=== PATIENT | female | born 1935 | race Caucasian/White ===

== ENCOUNTER 2019-10-24 09:29 | Inpatient (IN) | payer MEDICARE, OTHER, SELFPAY ==
[2019-10-24] VITALS (12 sets, daily range): BP systolic 116–153; BP diastolic 49–80; PULSE 78–106; RESP 12–23; TEMP 35.7–36.6; O2SAT 94–100; BMI 23.5
--- NOTE | ~2019-10-24 | US_ITS ---
US renal BI 10/25/2019 17:37 Procedure: Realtime transabdominal ultrasound of the kidneys and bladder. Indication: Acute renal failure Comparison: No prior studies for comparison. Findings: There is a right extrarenal pelvis. There is a small echogenic focus in the upper pole of t he right kidney measuring 8 mm, possibly nonobstructing renal stone. Right kidney measures 9.8 cm. Th ere is an 8 mm left renal cyst. There is a 4 mm nonobstructing left renal stone. Bladder is not visua lized due to catheterization. Impression: 1: Probable bilateral nephrolithiasis. 2: 8 mm left renal cyst. Reviewed, dictated and finalized at location A. RAL PASSENGER AGENT Impression: 1: Probable bilateral nephrolithiasis. 2: 8 mm left renal cyst.
--- NOTE | ~2019-10-24 | US_ITS ---
EXAMINATION: US venous doppler LE EXAM DATE: 10/24/2019 11:23 INDICATION: Bilateral leg swelling. TECHNIQUE: Multiple grayscale, color flow and Doppler images of the lower extremity deep venous syste ms bilaterally were obtained and reviewed. There is no prior study for comparison. FINDINGS: RIGHT SIDE Common femoral: -------- Normal. Profunda femoral: ------- Normal. Femoral: Normal. Popliteal: Normal. Posterior tibial: --------- Normal. Peroneal: Normal. Gastrocnemius: Not visualized. Soleus: Not visualized. Greater saphenous: ----- Normal. Lesser saphenous: ------ Not visualized. LEFT SIDE Common femoral: -------- Normal. Profunda femoral: ------- Normal. Femoral: Thrombosed. Popliteal: Thrombosed. Posterior tibial: ---------Thrombosed. Peroneal: Not evaluated. Gastrocnemius: Thrombosed. Soleus: Not visualized. Greater saphenous: ----- Normal. Lesser saphenous: ------ Not visualized. IMPRESSION: 1. Positive for occlusive left lower extremity DVT. 2. No right DVT. Reviewed, dictated and finalized at location B. ARD OPERATOR
--- NOTE | ~2019-10-24 | XR_ITS ---
EXAMINATION: XR chest 1V DATE: 10/24/2019 11:22 INDICATION: Weakness. TECHNIQUE: A single frontal view of the chest was obtained. COMPARISON: None. FINDINGS: The chest demonstrates clear lungs without pneumonia, pleural effusion, or pneumothorax. Th e heart size is normal. Surgical clips in the right upper quadrant are likely from cholecystectomy. IMPRESSION: 1. No acute cardiopulmonary disease. Reviewed, dictated and finalized at location A. WHEELER
--- NOTE | ~2019-10-24 | CT_ITS ---
EXAMINATION: CT brain wo con EXAM DATE: 10/24/2019 10:57 INDICATION: Weakness. TECHNIQUE: Spiral CT of the head was performed without contrast. Axial, coronal and sagittal images were reviewed. The dose-length product (DLP) for this examination was 605.33 mGy-cm. The exposure w as tailored according to patient size, and iterative reconstruction (ASIR) was used as additional dos e reduction technique. Comparison is made to prior examination from 10/05/2017. FINDINGS: There is no acute intraparenchymal hemorrhage. No evidence of intraparenchymal brain mass lesion. No evidence of acute infarction. Please note that initial head CT has limited sensitivity f or small or acute infarctions. There is moderate periventricular and subcortical hypodensity, nonspec ific but probably related to small vessel ischemic disease. There is ventricular prominence out of proportion to sulci which is suspected most likely central atrophy rather than hydrocephalus. Normal pressure hydrocephalus cannot be excluded (clinical triad ataxia/gait disturbance, dementia, urinary incontinence). There is intracranial carotid arteriosclerosis. There are no extra-axial collectio ns. There is no mass effect or midline shift. The orbits are unremarkable. Soft tissue is unremark able. The visualized sinuses and mastoid air cells are well aerated. Difficult to appreciate any s ignificant interval change compared to prior study. IMPRESSION: 1. No acute intracranial findings. 2. Dilated ventricles most likely central atrophy. 3. Moderate microangiopathy. Reviewed, dictated and finalized at location B. LINE OPERATOR
--- NOTE | 2019-10-24 09:48 | ECG_ITS ---
Measurements Intervals [place] Rate: 96 P: 59 AR: 129 QRS: -11 QRSD: 91 T: 32 QT: 341 QTc: 433 Interpretive Statements SINUS RHYTHM ATRIAL PREMATURE COMPLEXES BORDERLINE T WAVE ABNORMALITY- INFERIOR LEADS BASELINE ARTIFACT- I, II, AVR, AVL, AVF, V5-V6 BORDERLINE ECG Electronically Signed On 10-24-2019 16:06:15 [employer] by Marcio Tripp D.O.
--- NOTE | 2019-10-24 10:09 | ED.WEAKNESS ---
HPI - Weakness General Chief complaint: Weakness Stated complaint: weakness Time Seen by Provider: 10/24/19 09:53 Source: patient, family (pt's ) and RN notes reviewed Mode of arrival: EMS Limitations: dementia History of Present Illness HPI Narrative: Pt is a 84 y/o female with a Hx of dementia, who presents to the ED with c/o increasing generalized weakness starting over 1 month ago. According to the pt's family, she started becoming more weak than normal around 09/17/19. Pt's family notes that within the past 2 weeks, she has hardly eaten anything and has become so weak that they are unable to help her get out of her chair. Her states that she has been drinking a significant amount of water. Pt's also reports the pt having fatigue and bilateral pedal edema. She currently denies any pain. Her notes that she has been taking her normal medications as prescribed. Pt's family states that she hasn't experienced any recent life stressors that could have caused her symptoms. HPI limited due to pt's dementia. HPI given by pt's family. MD Complaint: generalized weakness Onset (ago): month(s) (1) Duration: progressively worsening Location: generalized Associated symptoms: other (fatigue; bilateral pedal edema; decreased food intake) Related Data Home Medications Medication Instructions Recorded Confirmed atorvastatin 10 mg PO HS 10/24/19 10/24/19 donepezil 10 mg PO QPM 10/24/19 10/24/19 fesoterodine [Toviaz] 4 mg PO DAILY 10/24/19 10/24/19 glimepiride 2 mg PO DAILY 10/24/19 10/24/19 metformin 1,000 mg PO BID 10/24/19 10/24/19 Allergies Allergy/AdvReac Type Severity Reaction Status Date / Time codeine Allergy Unknown Nausea Verified 09/28/17 21:20 Review of Systems Review of Systems: Narrative: ROS limited due to pt's dementia. ROS given by pt's family. Constitutional: Constitutional: Reports fatigue, Reports weakness (generalized weakness) and Reports other (decreased food intake) Cardiovascular: Cardiovascular: Reports pedal edema (bilateral pedal edema) PMF Past Medical History Medical History Cancer of left breast Diabetes HLD (hyperlipidemia) HTN (hypertension) Surgical History Surgical History Hx of cholecystectomy Hx of left mastectomy Hx of spinal surgery Family History Family History (Updated 10/24/19 @ 16:36 by Taylor Leonard, RN) Mother Patient's mother is , Onset Age: 93 Chronic obstructive pulmonary disease Father Family history of lung cancer, Onset Age: 76 Chronic obstructive pulmonary disease Social History Social History Smoking status: Never smoker Second hand tobacco smoke exposure: Yes Alcohol intake: never Substance use: never Substance use type: does not use Gender identity (if verbalized by the patient): Female Spiritual care concerns: No Agree to blood products: Yes Comments PCP is Dr. Fagan. Exam Const: General: alert and ill appearing Orientation/consciousness: patient oriented x3 HENMT: Head: normocephalic and atraumatic Ears: hearing grossly normal bilaterally Face and sinus: normal facial exam, face symmetric and dry mucous membranes Mouth: Yes lip normal Throat: posterior oropharynx normal Eyes: Conjunctivae: conjunctivae normal Pupils: Equal, round and reactive pupils present Neck: Neck: no lymphadenopathy Chest: Chest palpation & inspection: normal inspection of the chest Resp: Effort & Inspection: normal respiratory effort Auscultation: clear to auscultation bilaterally and diminished lung sounds Cardio: Rhythm: regular rhythm Heart sounds: no murmurs GI: Inspection: non-distended GI Palp: Yes Soft to palpation, Yes Tenderness to palpation present (GI) (patient moans everywhere you touch her), No Guarding due to palpatio
[2019-10-24 10:38] LABS: Alveolar/Arterial O2 Gradient 20.9 mmHg; Base Excess ABG -6.1 mEq/l (+/-2.0); Carboxyhemoglobin 0.2 % THb (0-2.0); Fractional Inspired Oxygen 21 %; HCO3 ABG 14.5 mEq/l (22.0-26.0); Methemoglobin ABG 0.2 %THb (0-1.5); Oxygen Content ABG 18.5 %vol (16.0-22.0); Oxygen Saturation ABG 98.4 % (95.0-100.0); Oxyhemoglobin 97.3 % THb (90.0-100.0); PO2 ABG 106.3 mmHg (80.0-100.0); PO2 FiO2 Ratio Arterial Blood 5.06 %; Reduced Hemoglobin 2.3 %THb (0-5.0); Total Hemoglobin 13.4 g/dL (12.0-18.0); pH ABG 7.505 (7.350-7.450)
[2019-10-24 10:40] LABS: Basophils Percent Auto 0.2 % (0.2-1.2); Hematocrit 42.6 % (37.0-47.0); Hemoglobin 13.5 g/dL (12.0-15.0); Immature Granulocyte Absolute 0.16 K/mm3 (0.00-0.031); Lymphocytes Absolute Auto 1.64 K/mm3 (0.9-3.2); Lymphocytes Percent Auto 10.3 % (18.3-44.2); Mean Corpuscular HGB Conc 31.7 g/dl (32-36); Mean Corpuscular Hemoglobin 26.3 pg (26-34); Mean Platelet Volume 10.5 fl (7.4-10.4); Monocytes Absolute Auto 0.7 K/mm3 (0.1-0.6); Monocytes Percent Auto 4.3 % (2.6-8.5); Neutrophils Absolute Auto 13.5 K/mm3 (1.3-6.7); Neutrophils Percent Auto 84.2 % (45.5-73.1); Platelet Count Result 284 k/mm3 (150-375); Red Blood Count 5.13 M/mm3 (4.2-5.4)
[2019-10-24 10:43] LABS: Device ROOM AIR; PCO2 ABG 18.8 mmHg (35.0-45.0); Site Drawn RIGHT BRACHIAL
[2019-10-24 10:50] LABS: Prothrombin Time 12.8 Seconds (11.1-14.7)
[2019-10-24 10:51] LABS: Partial Thromboplastin Time 34.9 SECONDS (22.3-36.8)
[2019-10-24 10:56] LABS: Alanine Aminotransferase 13 U/L (4-35); Albumin Level 4.1 g/dL (3.5-5.1); Alkaline Phosphatase 125 U/L (38-126); Aspartate Amino Transferase 15 U/L (14-36); Bilirubin,Total 0.4 mg/dL (0.2-1.3); Blood Urea Nitrogen 92 mg/dL (7-17); Calcium 9.9 mg/dL (8.4-10.2); Carbon Dioxide 15 mmol/L (22-30); Chloride 95 mmol/L (98-107); Estimated CRCL calculation 5 ml/min; Estimated Glomerular Filt Rate 6; Glucose 141 mg/dL (65-105); Magnesium 1.4 mg/dL (1.6-2.3); Potassium 5.1 mmol/L (3.4-5.0); Sodium 134 mmol/L (137-145)
--- NOTE | 2019-10-24 10:56 | PCCCNOTE ---
spoke with daughter c/o possible NH placement; given list of available NH in the area. Discussed different payment options but too early to determine best option.
[2019-10-24 10:59] LABS: Ammonia < 9 umol/L (9-30)
[2019-10-24 11:05] LABS: NT Pro B Type Natriuretic Pept 2940 PG/ML (5-100)
[2019-10-24] MEDS: SODIUM CHLORIDE 0.9% IV 1,000 ML 999 ML IV CONT (11:42)
[2019-10-24 11:57] LABS: Add Urine Microscopic? YES; Appearance Urine Cloudy (Clear); Bacteria Urine Trace /hpf; Bilirubin Urine Negative (Negative); Blood Urine 2+ (Negative); Color Urine Yellow (Yellow); Glucose Urine UA 1+ mg/dL (Negative); Hyaline Casts Urine 50+ /lpf; Ketones Urine Negative (Negative); Leukocyte Esterase Ur 1+ LEU/UL (Negative); Mucus Urine Heavy /lpf; Nitrate Urine Negative (Negative); Protein Urine 2+ mg/dL (Negative); RBC Urine 21-50 /hpf (0-2); Specific Grav Ur 1.018 (1.001-1.035); Squamous Epithelial Cell Urine Moderate /hpf (Few); Urobilinogen Urine Negative mg/dL (<2.0); WBC Clumps Urine Present /HPF; WBC Urine 21-30 /hpf
--- NOTE | 2019-10-24 14:39 | ADMGEN ---
This patient, Hannah Lima, was admitted to IMU Room 214-01. Patient/family oriented to hospital policies and general routines including ID bracelet, bed and alarms, visiting hours, pain management, procedures, bathroom and other care routines, personal items, smoking policy, room service/diet, and visiting hours. Valuables list has been completed. Information on how to activate the Rapid Response Team has been discussed. Patient/Family are encouraged to report perceived risks to care and to ask questions if they do not understand what they are told or what they should do.
[2019-10-24] MEDS: HEPARIN SOD/D5W 100 UNITS/ML 25,000 UNITS/250 ML BAG 10 UNITS IV CONT (17:03)
[2019-10-24] MEDS: LACTATED RINGERS 1,000 ML 125 ML IV CONT (17:03)
[2019-10-24] MEDS: HEPARIN SODIUM 5,000 UNITS/ML VIAL 4500 UNITS IV PUSH (17:04)
--- NOTE | 2019-10-24 20:18 | PM.IMHP ---
H&P: HPI History of Present Illness Chief complaint: Generalized Weakness++ Narrative: This is a demented 84 year old female who is known to live at home with her and who presented to the hospital today secondary to increased generalized weakness over the past 1 month. The patient's family reports that she has had increased ambulatory dysfunction over the past few weeks and has needed help just to ambulate. Over the past 3-4 days she simply hasn't even got out of bed and stopped eating and drinking according to her and has had increased lower extremity swelling++ The patient herself is only oriented to herself and cannot contribute to her history. Her also reports that the patient has been messing herself and laying in it. The patient denies any specific pain tonight. The pateint was evaluated in the ER tonight and found to be in acute renal failure with a Cr of 7.00 and a BUN of 92. The patient also had a low magnesium of 1.4 and a WBC of 16,000. Urinalysis demonstrated a grossly abnormal urine w/ 21-30 wbc, +[address] Devine, Nephrology has been consulted by the ER provider and has already evaluated the patient. The patient was also found to have a LLE DVT in the ER tonight. Family denies any recent falls. Review of Systems Review of Systems: ROS unobtainable: unobtainable due to mental status PMFSH Past Medical History Medical History Cancer of left breast Dementia Diabetes HLD (hyperlipidemia) HTN (hypertension) Surgical History Surgical History Hx of cholecystectomy Hx of left mastectomy Hx of spinal surgery Family History Family History Mother Patient's mother is , Onset Age: 93 Chronic obstructive pulmonary disease Father Family history of lung cancer, Onset Age: 76 Chronic obstructive pulmonary disease Social History Social History Smoking status: Never smoker Second hand tobacco smoke exposure: Yes Alcohol intake: never Substance use: never Substance use type: does not use Gender identity (if verbalized by the patient): Female Spiritual care concerns: No Agree to blood products: Yes Meds Home Medications and Allergies Home Medications Medication Instructions Recorded Confirmed Type lisinopril 10 mg tablet 10 mg PO DAILY #90 tablet 10/21/19 10/24/19 Rx atorvastatin 10 mg PO HS 10/24/19 10/24/19 History donepezil 10 mg PO QPM 10/24/19 10/24/19 History fesoterodine [Toviaz] 4 mg PO DAILY 10/24/19 10/24/19 History glimepiride 2 mg PO DAILY 10/24/19 10/24/19 History metformin 1,000 mg PO BID 10/24/19 10/24/19 History Allergies Allergy/AdvReac Type Severity Reaction Status Date / Time codeine Allergy Unknown Nausea Verified 09/28/17 21:20 Vital Signs Vital Signs - 24 hr 10/24/19 09:30 10/24/19 09:46 10/24/19 10:15 Temperature 36.6 C Pulse Rate 96 99 106 H Respiratory Rate 20 16 23 H Blood Pressure 142/80 H 147/74 H 126/78 Pulse Oximetry 100 100 100 10/24/19 11:30 10/24/19 12:15 10/24/19 14:35 Temperature 35.7 C L Pulse Rate 93 96 98 Respiratory Rate 22 H 18 12 Blood Pressure 153/77 H 148/71 H Pulse Oximetry 100 95 10/24/19 16:00 10/24/19 18:00 10/24/19 19:55 Temperature 35.7 C L 36.1 C L Pulse Rate 99 93 89 Respiratory Rate 18 22 H Blood Pressure 134/65 129/49 L Pulse Oximetry 100 97 Exam Const: General: awake and acute distress moderate and respiratory (tachypneic++) Nutritional Appearance: overweight Orientation/consciousness: oriented to person HENMT: Head: normal to inspection General nose exam: Normal external nose present Face and sinus: normal facial exam Mouth: Yes Normal oral and palatal mucosa present and Yes oropharynx normal Eyes: Pupils: Equal, round and
[2019-10-24 20:47] LABS: Glucose Point of Care 45 (65-105)
[2019-10-24] MEDS: GLUCOSE ORAL GEL 15 GM OF GLUCSE IN 37.5 GM TUBE (20:48)
[2019-10-24 21:08] LABS: Lactic Acid Reflex 1.5 mmol/L (0.7-2.1)
[2019-10-24 21:09] LABS: Creatine Kinase 78 U/L (30-135)
[2019-10-24 21:17] LABS: Blood Urea Nitrogen 95 mg/dL (7-17); Calcium 8.7 mg/dL (8.4-10.2); Carbon Dioxide 15 mmol/L (22-30); Chloride 98 mmol/L (98-107); Estimated CRCL calculation 5 ml/min; Estimated Glomerular Filt Rate 6; Glucose 48 mg/dL (65-105); Magnesium 1.4 mg/dL (1.6-2.3); Potassium 4.2 mmol/L (3.4-5.0); Sodium 131 mmol/L (137-145)
[2019-10-24] MEDS: SODIUM CHLORIDE 0.9% IV 1,000 ML 125 ML IV CONT (21:22)
[2019-10-24] MEDS: DEXTROSE 50% 25 GM/50 ML SYRINGE IV PUSH (21:22)
[2019-10-24 21:23] LABS: Glucose Point of Care 48 (65-105)
[2019-10-24 21:29] LABS: Alveolar/Arterial O2 Gradient 8.1 mmHg; Base Excess ABG -6.4 mEq/l (+/-2.0); Fractional Inspired Oxygen 21 %; HCO3 ABG 16.9 mEq/l (22.0-26.0); Oxygen Content ABG 16.3 %vol (16.0-22.0); Oxygen Saturation ABG 98.1 % (95.0-100.0); Oxyhemoglobin 96.5 % THb (90.0-100.0); PCO2 ABG 27.3 mmHg (35.0-45.0); PO2 ABG 108.9 mmHg (80.0-100.0); PO2 FiO2 Ratio Arterial Blood 5.19 %; Total Hemoglobin 11.9 g/dL (12.0-18.0); pH ABG 7.409 (7.350-7.450)
[2019-10-24 21:31] LABS: Device ROOM AIR; Modified Allen's Test Pass; Site Drawn RIGHT RADIAL
[2019-10-24] MEDS: ATORVASTATIN 10 MG TABLET PO (21:35)
[2019-10-24] MEDS: DONEPEZIL HCL 10 MG TABLET PO (21:35)
[2019-10-24] MEDS: MAGNESIUM SULF 1 GM/D5W 100 ML 1 GM/100 ML BAG IVPB (22:55)
[2019-10-24 23:09] LABS: Glucose Point of Care 150 (65-105)
[2019-10-24 23:09] LABS: Glucose Point of Care 144 (65-105)
[2019-10-25] VITALS (17 sets, daily range): BP systolic 115–135; BP diastolic 48–59; PULSE 73–100; RESP 12–20; TEMP 36–36.7; O2SAT 98–100
[2019-10-25 01:27] LABS: Partial Thromboplastin Time 84.1 SECONDS (22.3-36.8)
[2019-10-25 06:15] LABS: Creatinine Urine 62.9 mg/dL; Total Protein Urine Random 125 mg/dL
[2019-10-25 06:20] LABS: Sodium Urine Random 64 meq/L
[2019-10-25] MEDS: DEXTROSE 50% 25 GM/50 ML SYRINGE IV PUSH (06:32)
[2019-10-25] MEDS: DEXTROSE 5%/0.9% SOD CHL 1,000 ML 125 ML IV CONT ×2 (06:43→15:26)
[2019-10-25 06:57] LABS: Glucose Point of Care 47 (65-105)
[2019-10-25 06:57] LABS: Glucose Point of Care 100 (65-105)
[2019-10-25 06:57] LABS: Glucose Point of Care 49 (65-105)
[2019-10-25 07:49] LABS: Basophils Percent Auto 0.1 % (0.2-1.2); Hematocrit 33.4 % (37.0-47.0); Hemoglobin 10.7 g/dL (12.0-15.0); Immature Granulocyte Absolute 0.15 K/mm3 (0.00-0.031); Immature Granulocyte Percent A 1.1 % (0-0.5); Lymphocytes Absolute Auto 1.08 K/mm3 (0.9-3.2); Lymphocytes Percent Auto 7.7 % (18.3-44.2); Mean Corpuscular Hemoglobin 26.6 pg (26-34); Mean Corpuscular Volume 83.1 fl (80-100); Mean Platelet Volume 10.5 fl (7.4-10.4); Monocytes Absolute Auto 0.8 K/mm3 (0.1-0.6); Neutrophils Absolute Auto 11.9 K/mm3 (1.3-6.7); Neutrophils Percent Auto 85.1 % (45.5-73.1); Platelet Count Result 222 k/mm3 (150-375); Red Blood Count 4.02 M/mm3 (4.2-5.4); Red Cell Distribution Width 14.3 % (11.5-14.5)
[2019-10-25 08:03] LABS: Alanine Aminotransferase 11 U/L (4-35); Albumin Level 2.7 g/dL (3.5-5.1); Alkaline Phosphatase 78 U/L (38-126); Aspartate Amino Transferase 13 U/L (14-36); Bilirubin,Total 0.2 mg/dL (0.2-1.3); Blood Urea Nitrogen 94 mg/dL (7-17); Calcium 8.2 mg/dL (8.4-10.2); Carbon Dioxide 16 mmol/L (22-30); Chloride 98 mmol/L (98-107); Estimated CRCL calculation 5 ml/min; Estimated Glomerular Filt Rate 6; Glucose 139 mg/dL (65-105); Sodium 132 mmol/L (137-145)
[2019-10-25] MEDS: HEPARIN SODIUM 5,000 UNITS/ML VIAL 2000 UNITS IV PUSH (08:23)
[2019-10-25 08:34] LABS: Glucose Point of Care 107 (65-105)
[2019-10-25 08:47] LABS: Albumin Level 2.5 g/dL (3.5-5.1); Blood Urea Nitrogen 93 mg/dL (7-17); Calcium 8.3 mg/dL (8.4-10.2); Carbon Dioxide 17 mmol/L (22-30); Chloride 99 mmol/L (98-107); Estimated CRCL calculation 5 ml/min; Estimated Glomerular Filt Rate 6; Glucose 122 mg/dL (65-105); Phosphorus 4.3 mg/dL (2.5-4.5); Potassium 4.1 mmol/L (3.4-5.0); Sodium 132 mmol/L (137-145)
--- NOTE | 2019-10-25 11:44 | PM.CNNEP ---
Assessment and Plan Assessment and plan (1) Acute renal failure (ARF): Qualifiers: Acute renal failure type: unspecified Qualified Code(s): N17.9 - Acute kidney failure, unspecified Code(s): N17.9 - Acute kidney failure, unspecified Status: Acute Assessment and Plan: The patient has acute kidney injury. Etiology may be dehydration. She has not been eating or drinking very well for the last 2 weeks. She may also have an element of ATN because of the prolonged period of dehydration and because she has a bladder infection and infection can cause ATN as well especially when she is already dehydrated. Other possibilities include obstruction, glomerulonephritis, and interstitial nephritis but I a do not see any clinical suggestions of these. Her urine electrolytes are non pre renal suggesting that ATN may also be involved. Renal ultrasound will be ordered. She is not on any nephrotoxic medications. I agree with giving her IV fluids. We will keep an eye on the bicarb as we hydrate. (2) Metabolic acidosis with increased anion gap and reduced excretion of inorganic acids: Code(s): E87.2 - Acidosis Status: Acute Assessment and Plan: Patient has metabolic acidosis with a mildly elevated anion gap. Her lactic acid level is negative. Will check a BHOb. The patient probably has an acidosis because of her renal insufficiency. (3) HTN (hypertension): Qualifiers: Hypertension type: unspecified Qualified Code(s): I10 - Essential (primary) hypertension Code(s): I10 - Essential (primary) hypertension Status: Chronic (4) Diabetes: Qualifiers: Diabetes mellitus type: type 2 Diabetes mellitus usp insulin use: without usp use Diabetes mellitus complication status: without complication Qualified Code(s): E11.9 - Type 2 diabetes mellitus without complications Code(s): E11.9 - Type 2 diabetes mellitus without complications Status: Chronic Assessment and Plan: Blood pressure is well controlled. (5) Complicated UTI (urinary tract infection): Code(s): N39.0 - Urinary tract infection, site not specified Status: Acute Assessment and Plan: Urine culture is pending. She is on antibiotics. History of Present Illness Reason for Consult Consult date: 10/25/19 Chief Complaint Chief complaint: Generalized Weakness++ History of Present Illness Narrative: Hannah is a very pleasant 84-year-old lady who has multiple medical problems problems including diabetes, senile dementia, hypertension, hyperlipidemia, left-sided breast cancer 10 years ago, anemia. Two sons are in the room and helped with the history. The patient lives with her at home. Over the last 2 weeks the patient has been gradually weaker and she has not been eating or drinking very much. She has had no belly pain. She does not remember why she stopped eating. She just has no appetite. Her called the sons yesterday because he could not get her up anymore and they went over there and found her to be very weak so called an ambulance and took her to the emergency room. In the emergency room they assessed her. They felt her to be dehydrated and gave her some fluid and admitted her. She has never had kidney disease before. She does not have any bloody urine, foamy urine, painful urination, kidney stones, or bladder infections. She has not had any fevers or chills. She says that she does not take any nonsteroidal anti-inflammatory agents. She is on metformin. Her lactic acid was normal. She does not smoke or drink. Review of Systems Constitutional: Constitutional: Reports no additional constitutional complaints Eyes: Eyes: Reports no additional eye complaints ENT: Reports system reviewed and no additional complaints, except as documented Cardiovascular: Cardiovascular: Reports no additional cardiovascular complaints Respira
[2019-10-25 11:56] LABS: Glucose Point of Care 117 (65-105)
[2019-10-25 15:46] LABS: Partial Thromboplastin Time > 200.0 SECONDS (22.3-36.8)
--- NOTE | 2019-10-25 16:59 | PM.IMPN ---
Progress Note: A&P Assessment and Plan (1) Complicated UTI (urinary tract infection): Code(s): N39.0 - Urinary tract infection, site not specified Status: Acute Assessment and Plan: The patient has been admitted, Continue Zosyn IV. Urine culture pending growing multiple organisms with sepsis will continue antibiotic. Sanchez catheter was placed. Monitor urine output. (2) Sepsis: Qualifiers: Sepsis type: sepsis due to unspecified organism Sepsis acute organ dysfunction status: with acute organ dysfunction Severe sepsis acute organ dysfunction type: acute renal failure Acute renal failure type: unspecified Severe sepsis shock status: without septic shock Qualified Code(s): A41.9 - Sepsis, unspecified organism; R65.20 - Severe sepsis without septic shock; N17.9 - Acute kidney failure, unspecified Code(s): A41.9 - Sepsis, unspecified organism Status: Acute Assessment and Plan: Source of sepsis appears to be urinary.. blood,cultures pending. Continue IV antibiotic therapy. Continue IV hydration. (3) Acute renal failure (ARF): Qualifiers: Acute renal failure type: unspecified Qualified Code(s): N17.9 - Acute kidney failure, unspecified Code(s): N17.9 - Acute kidney failure, unspecified Status: Acute Assessment and Plan: Likely secondary to dehydration and poor PO intake of fluids. Continue IV fluid challenge. Check CK normal. Check urine electrolytes. Renal ultrasound pending. Nephrology has been consulted. Continue nephrology recommendations. (4) Dehydration: Code(s): E86.0 - Dehydration Status: Acute Assessment and Plan: Continue IV hydration. Monitor vital signs and urine output. (5) Failure to thrive: Qualifiers: Failure to thrive age range: in adult Qualified Code(s): R62.7 - Adult failure to thrive Status: Acute Assessment and Plan: Likely multifactorial. The patient will likely need placement in a SNF when she is medically stable. (6) Decubitus ulcer, stage 1 with infection: Code(s): L89.91 - Pressure ulcer of unspecified site, stage 1; L08.9 - Local infection of the skin and subcutaneous tissue, unspecified Status: Acute Assessment and Plan: Wound care consult. Offload pressure. (7) Dementia: Qualifiers: Dementia type: unspecified type Dementia behavioral disturbance: without behavioral disturbance Qualified Code(s): F03.90 - Unspecified dementia without behavioral disturbance Code(s): F03.90 - Unspecified dementia without behavioral disturbance Status: Chronic Assessment and Plan: Continue home donepezil when appropriate. (8) Metabolic acidosis with increased anion gap and reduced excretion of inorganic acids: Code(s): E87.2 - Acidosis Status: Acute Assessment and Plan: Appears to be secondary to acute renal failure. Monitor acid-base status. (9) Hyperkalemia: Code(s): E87.5 - Hyperkalemia Status: Acute Assessment and Plan: Secondary to acute renal failure. Continue telemetry. Check BMP now. We will consider kayexalate, dextrose, insulin and sodium bicarbonate if necessary overnight. K 4.1 resolved (10) Diabetes: Qualifiers: Diabetes mellitus type: type 2 Diabetes mellitus mcfp insulin use: without terminologist use Diabetes mellitus complication status: without complication Qualified Code(s): E11.9 - Type 2 diabetes mellitus without complications Code(s): E11.9 - Type 2 diabetes mellitus without complications Status: Chronic Assessment and Plan: accuchecks, SSI coverage, hypoglycemic protocol. (11) HTN (hypertension): Qualifiers: Hypertension type: unspecified Qualified Code(s): I10 - Essential (primary) hypertension Code(s): I10 - Essential (primary) hypertension Status: Chronic Assessment and Plan: stable. monitor blood pressur
[2019-10-25] MEDS: DONEPEZIL HCL 10 MG TABLET PO (18:23)
[2019-10-25] MEDS: GLUCOSE ORAL GEL 15 GM OF GLUCSE IN 37.5 GM TUBE PO ×2 (18:31→22:04)
[2019-10-25 18:39] LABS: Glucose Point of Care 64 (65-105)
[2019-10-25 19:05] LABS: Glucose Point of Care 63 (65-105)
[2019-10-25 19:31] LABS: Glucose Point of Care 72 (65-105)
[2019-10-25] MEDS: HEPARIN SOD/D5W 100 UNITS/ML 25,000 UNITS/250 ML BAG 11 UNITS IV CONT (20:42)
[2019-10-25] MEDS: ATORVASTATIN 10 MG TABLET PO (20:46)
[2019-10-25 21:49] LABS: Glucose Point of Care 55 (65-105)
[2019-10-25 22:31] LABS: Glucose Point of Care 73 (65-105)
[2019-10-25] MEDS: DEXTROSE 10% 1,000 ML 80 ML IV CONT (23:39)
[2019-10-26] VITALS (10 sets, daily range): BP systolic 103–130; BP diastolic 55–77; PULSE 81–97; RESP 16–24; TEMP 36.2–36.4; O2SAT 97–100; BMI 10.0
[2019-10-26 00:36] LABS: Glucose Point of Care 94 (65-105)
[2019-10-26 01:03] LABS: Partial Thromboplastin Time 184.7 SECONDS (22.3-36.8)
[2019-10-26 03:04] LABS: Glucose Point of Care 58 (65-105)
[2019-10-26 03:32] LABS: Glucose Point of Care 77 (65-105)
[2019-10-26 05:20] LABS: Glucose Point of Care 114 (65-105)
[2019-10-26 07:31] LABS: Basophils Percent Auto 0.2 % (0.2-1.2); Eosinophils Absolute Auto 0.1 K/mm3 (0-0.3); Eosinophils Percent Auto 0.7 % (0-4.4); Hematocrit 32.3 % (37.0-47.0); Hemoglobin 10.2 g/dL (12.0-15.0); Immature Granulocyte Absolute 0.15 K/mm3 (0.00-0.031); Immature Granulocyte Percent A 1.2 % (0-0.5); Lymphocytes Percent Auto 11.1 % (18.3-44.2); Mean Corpuscular HGB Conc 31.6 g/dl (32-36); Mean Corpuscular Hemoglobin 26.6 pg (26-34); Mean Corpuscular Volume 84.3 fl (80-100); Mean Platelet Volume 10.5 fl (7.4-10.4); Monocytes Absolute Auto 0.9 K/mm3 (0.1-0.6); Monocytes Percent Auto 6.9 % (2.6-8.5); Neutrophils Absolute Auto 10.1 K/mm3 (1.3-6.7); Neutrophils Percent Auto 79.9 % (45.5-73.1); Platelet Count Result 206 k/mm3 (150-375); Red Blood Count 3.83 M/mm3 (4.2-5.4); Red Cell Distribution Width 14.6 % (11.5-14.5); White Blood Count 12.6 K/mm3 (4.5-10.0)
[2019-10-26 07:46] LABS: Albumin Level 2.7 g/dL (3.5-5.1); Blood Urea Nitrogen 78 mg/dL (7-17); Calcium 7.9 mg/dL (8.4-10.2); Carbon Dioxide 17 mmol/L (22-30); Chloride 95 mmol/L (98-107); Estimated CRCL calculation 6 ml/min; Estimated Glomerular Filt Rate 8; Glucose 190 mg/dL (65-105); Phosphorus 3.2 mg/dL (2.5-4.5); Potassium 3.4 mmol/L (3.4-5.0); Sodium 128 mmol/L (137-145)
[2019-10-26 08:04] LABS: Partial Thromboplastin Time 171.9 SECONDS (22.3-36.8)
[2019-10-26] MEDS: DEXTROSE 10% 1,000 ML 150 ML IV CONT (08:11)
[2019-10-26] MEDS: DEXTROSE 5%/0.9% SOD CHL 1,000 ML 125 ML IV CONT ×2 (09:33→17:51)
[2019-10-26 09:37] LABS: Glucose Point of Care 138 (65-105)
[2019-10-26 11:26] LABS: IFOB Positive Control Positive; Immunochemical Fecal Occult Bl Negative (N)
--- NOTE | 2019-10-26 13:55 | PM.PNNEP ---
Progress Note: A&P Assessment and Plan (1) Acute renal failure (ARF): Qualifiers: Acute renal failure type: unspecified Qualified Code(s): N17.9 - Acute kidney failure, unspecified Code(s): N17.9 - Acute kidney failure, unspecified Status: Acute Assessment and Plan: The patient has acute kidney injury. No hydro. She has 1 cyst and possible bilateral kidney stones. Urine electrolytes are non pre renal. UA does show blood and pus in the urine. Culture shows multiple organisms. Etiology may be dehydration. She has not been eating or drinking very well for the last 2 weeks. Patient also has some diarrhea. She may also have an element of ATN because of the prolonged period of dehydration. Her creatinine is a little bit better. Will continue IV fluids. CO2 is stable. (2) Metabolic acidosis with increased anion gap and reduced excretion of inorganic acids: Code(s): E87.2 - Acidosis Status: Acute Assessment and Plan: Patient has metabolic acidosis with a mildly elevated anion gap. Her lactic acid level is negative as well as BHOb. The patient probably has an acidosis because of her renal insufficiency. (3) HTN (hypertension): Qualifiers: Hypertension type: unspecified Qualified Code(s): I10 - Essential (primary) hypertension Code(s): I10 - Essential (primary) hypertension Status: Chronic (4) Diabetes: Qualifiers: Diabetes mellitus type: type 2 Diabetes mellitus halfway insulin use: without halfway use Diabetes mellitus complication status: without complication Qualified Code(s): E11.9 - Type 2 diabetes mellitus without complications Code(s): E11.9 - Type 2 diabetes mellitus without complications Status: Chronic Assessment and Plan: On Accu-Cheks and sliding-scale insulin (5) Complicated UTI (urinary tract infection): Code(s): N39.0 - Urinary tract infection, site not specified Status: Acute Assessment and Plan: Urine culture is negative She is on antibiotics. Subjective Date/time seen: 10/26/19 13:55 Interval history: The patient was sleeping when I entered the room. and daughter are in the room as well. Patient wakens easily. No chest pain or shortness of breath. She is getting IV fluids. Review of Systems Cardiovascular: Cardiovascular: Reports no additional cardiovascular complaints Respiratory: Respiratory: Reports no additional respiratory complaints Gastrointestinal: Gastrointestinal: Reports no additional gastrointestinal complaints Genitourinary: Genitourinary: Reports no additional female genitourinary complaints Exam Narrative: Exam Narrative: Well developed well-nourished in no acute distress Lungs clear Heart regular without rub Abdomen bowel sounds positive soft nontender Extremities no edema Skin no rash Objective Data Vital Signs Vital Signs: Vital Signs - 24 hr 10/25/19 14:05 10/25/19 16:00 10/25/19 18:00 Temperature 36.6 C Pulse Rate 80 88 88 Respiratory Rate 16 Blood Pressure 125/54 L Pulse Oximetry 98 10/25/19 19:47 10/25/19 20:00 10/25/19 22:00 Temperature 36.2 C L Pulse Rate 87 84 84 Respiratory Rate 20 Blood Pressure 135/57 L Pulse Oximetry 98 10/25/19 23:57 10/26/19 00:00 10/26/19 02:00 Temperature 36.7 C Pulse Rate 88 90 82 Respiratory Rate 18 Blood Pressure 131/59 L Pulse Oximetry 98 10/26/19 03:48 10/26/19 04:00 10/26/19 05:53 Temperature 36.3 C L Pulse Rate 88 81 90 Respiratory Rate 22 H Blood Pressure 130/77 Pulse Oximetry 97 10/26/19 08:00 10/26/19 10:00 10/26/19 12:00 Temperature 36.4 C L Pulse Rate 89 88 92 Respiratory Rate 24 H Blood Pressure 103/60 Pulse Oximetry 100 Intake/Output Intake/Output: Intake & Output 10/23/19 10/24/19 10/25/19 10/26/19 23:59 23:59 23:59 23:59 Intake Total 1729.3 2292.7 1350 Output Total 0 6
[2019-10-26 14:12] LABS: Glucose Point of Care 135 (65-105)
--- NOTE | 2019-10-26 15:11 | PM.IMPN ---
Progress Note: A&P Assessment and Plan (1) Complicated UTI (urinary tract infection): Code(s): N39.0 - Urinary tract infection, site not specified Status: Acute Assessment and Plan: Continue Zosyn IV. Urine culture growing multiple organisms but with sepsis will continue antibiotic. Sanchez catheter was placed. Monitor urine output. (2) Sepsis: Qualifiers: Sepsis type: sepsis due to unspecified organism Sepsis acute organ dysfunction status: with acute organ dysfunction Severe sepsis acute organ dysfunction type: acute renal failure Acute renal failure type: unspecified Severe sepsis shock status: without septic shock Qualified Code(s): A41.9 - Sepsis, unspecified organism; R65.20 - Severe sepsis without septic shock; N17.9 - Acute kidney failure, unspecified Code(s): A41.9 - Sepsis, unspecified organism Status: Acute Assessment and Plan: Source of sepsis appears to be urinary.. blood,cultures so far negative. Continue IV antibiotic therapy. Continue IV hydration. (3) Acute renal failure (ARF): Qualifiers: Acute renal failure type: unspecified Qualified Code(s): N17.9 - Acute kidney failure, unspecified Code(s): N17.9 - Acute kidney failure, unspecified Status: Acute Assessment and Plan: Likely secondary to dehydration and poor PO intake of fluids. Continue IV fluid challenge. CK normal.. Renal ultrasound no obstruction.. creatinine down to 5.0 today. (4) Dehydration: Code(s): E86.0 - Dehydration Status: Acute Assessment and Plan: Continue IV hydration. Monitor vital signs and urine output. (5) Failure to thrive: Qualifiers: Failure to thrive age range: in adult Qualified Code(s): R62.7 - Adult failure to thrive Status: Acute Assessment and Plan: Likely multifactorial. The patient will likely need placement in a SNF when she is medically stable. start OT PT (6) Decubitus ulcer, stage 1 with infection: Code(s): L89.91 - Pressure ulcer of unspecified site, stage 1; L08.9 - Local infection of the skin and subcutaneous tissue, unspecified Status: Acute Assessment and Plan: Wound care consult. Offload pressure. (7) Dementia: Qualifiers: Dementia type: unspecified type Dementia behavioral disturbance: without behavioral disturbance Qualified Code(s): F03.90 - Unspecified dementia without behavioral disturbance Code(s): F03.90 - Unspecified dementia without behavioral disturbance Status: Chronic Assessment and Plan: Continue home donepezil when appropriate. (8) Metabolic acidosis with increased anion gap and reduced excretion of inorganic acids: Code(s): E87.2 - Acidosis Status: Acute Assessment and Plan: Appears to be secondary to acute renal failure. Monitor acid-base status. (9) Hyperkalemia: Code(s): E87.5 - Hyperkalemia Status: Acute Assessment and Plan: Secondary to acute renal failure. Continue telemetry. Check BMP now. We will consider kayexalate, dextrose, insulin and sodium bicarbonate if necessary overnight. K 3.4 resolved and will have to supplement with good urine output (10) Diabetes: Qualifiers: Diabetes mellitus type: type 2 Diabetes mellitus intermediate teacher insulin use: without residential use Diabetes mellitus complication status: without complication Qualified Code(s): E11.9 - Type 2 diabetes mellitus without complications Code(s): E11.9 - Type 2 diabetes mellitus without complications Status: Chronic Assessment and Plan: accuchecks, SSI coverage, hypoglycemic protocol. Bs finally stablizing ie up off oral hypoglycemic now few days (11) HTN (hypertension): Qualifiers: Hypertension type: unspecified Qualified Code(s): I10 - Essential (primary) hypertension Code(s): I10 - Essential (primary) hypertension Status: Chronic Assessment a
[2019-10-26 16:23] LABS: Partial Thromboplastin Time 89.4 SECONDS (22.3-36.8)
[2019-10-26] MEDS: POTASSIUM CHLORIDE 20 MEQ PACKET (FOR LIQUID) 40 MEQ PO (16:44)
--- NOTE | 2019-10-26 17:08 | PC.NURSE ---
This patient, Hannah Lima, was transferred to [ [id number]] on 10/26/19 at 1654. Personal belongings sent with patient. Belongings list checked. Report given to [ Starr BARBOSA]. Appropriate documentation sent with patient.
--- NOTE | 2019-10-26 17:46 | PC.NURSE ---
This patient, Hannah Lima, was received from [[facility] ] on 10/26/19 at 1700. Personal belongings list checked and signed. Patient/family oriented to unit policies and routines
[2019-10-26] MEDS: DONEPEZIL HCL 10 MG TABLET PO (18:14)
[2019-10-26 18:18] LABS: Glucose Point of Care 119 (65-105)
[2019-10-26] MEDS: HEPARIN SOD/D5W 100 UNITS/ML 25,000 UNITS/250 ML BAG 9 UNITS IV CONT (20:30)
[2019-10-26] MEDS: ATORVASTATIN 10 MG TABLET PO (22:12)
[2019-10-26 22:42] LABS: Partial Thromboplastin Time 73.5 SECONDS (22.3-36.8)
[2019-10-26 23:19] LABS: Glucose Point of Care 230 (65-105)
[2019-10-27] VITALS: BP 144/64; PULSE 98; RESP 16; TEMP 36.3; O2SAT 98
[2019-10-27] MEDS: DEXTROSE 5%/0.9% SOD CHL 1,000 ML 125 ML IV CONT (02:01)
[2019-10-27 06:00] VITALS: BP 146/65; PULSE 95; RESP 16; TEMP 36.3; O2SAT 99
[2019-10-27 08:37] LABS: Basophils Percent Auto 0.4 % (0.2-1.2); Eosinophils Absolute Auto 0.1 K/mm3 (0-0.3); Eosinophils Percent Auto 1.1 % (0-4.4); Hematocrit 37.9 % (37.0-47.0); Hemoglobin 11.5 g/dL (12.0-15.0); Immature Granulocyte Absolute 0.14 K/mm3 (0.00-0.031); Immature Granulocyte Percent A 1.3 % (0-0.5); Lymphocytes Absolute Auto 1.31 K/mm3 (0.9-3.2); Lymphocytes Percent Auto 11.7 % (18.3-44.2); Mean Corpuscular HGB Conc 30.3 g/dl (32-36); Mean Corpuscular Hemoglobin 26.2 pg (26-34); Mean Corpuscular Volume 86.3 fl (80-100); Mean Platelet Volume 10.5 fl (7.4-10.4); Monocytes Absolute Auto 0.8 K/mm3 (0.1-0.6); Monocytes Percent Auto 7.2 % (2.6-8.5); Neutrophils Absolute Auto 8.7 K/mm3 (1.3-6.7); Neutrophils Percent Auto 78.3 % (45.5-73.1); Platelet Count Result 217 k/mm3 (150-375); Red Blood Count 4.39 M/mm3 (4.2-5.4); Red Cell Distribution Width 14.8 % (11.5-14.5); White Blood Count 11.2 K/mm3 (4.5-10.0)
[2019-10-27] MEDS: INSULIN ASPART (*BKC) 100 UNITS/ML SUB-Q ×3 (08:38→18:52)
[2019-10-27 08:50] LABS: Partial Thromboplastin Time 120.4 SECONDS (22.3-36.8)
[2019-10-27 09:00] LABS: Glucose Point of Care 277 (65-105)
[2019-10-27 09:05] LABS: Blood Urea Nitrogen 51 mg/dL (7-17); Calcium 8.2 mg/dL (8.4-10.2); Carbon Dioxide 19 mmol/L (22-30); Chloride 106 mmol/L (98-107); Estimated CRCL calculation 11 ml/min; Estimated Glomerular Filt Rate 16; Glucose 292 mg/dL (65-105); Phosphorus 2.4 mg/dL (2.5-4.5); Potassium 3.3 mmol/L (3.4-5.0); Sodium 136 mmol/L (137-145)
[2019-10-27] MEDS: SODIUM CHLORIDE 0.9% IV 1,000 ML 75 ML IV CONT (10:47)
[2019-10-27 11:30] VITALS: BMI 25.3
[2019-10-27] MEDS: POTASSIUM PHOS,M-BASIC-D-BASIC 20 MMOL in SODIUM CHLORIDE 0.9% IV 250 ML 62.5 MMOL IVPB (11:35)
[2019-10-27 13:05] VITALS: BMI 11.0
[2019-10-27 13:53] LABS: Glucose Point of Care 275 (65-105)
--- NOTE | 2019-10-27 15:23 | PM.PNNEP ---
Progress Note: A&P Assessment and Plan (1) Acute renal failure (ARF): Qualifiers: Acute renal failure type: unspecified Qualified Code(s): N17.9 - Acute kidney failure, unspecified Code(s): N17.9 - Acute kidney failure, unspecified Status: Acute Assessment and Plan: The patient has acute kidney injury. No hydro. She has 1 cyst and possible bilateral kidney stones. Urine electrolytes are non pre renal. UA does show blood and pus in the urine. Culture shows multiple organisms. probably due to dehydration plus an element of ATN because of the prolonged period of dehydration. Her creatinine is much better today. Will continue IV fluids. (2) Metabolic acidosis with increased anion gap and reduced excretion of inorganic acids: Code(s): E87.2 - Acidosis Status: Acute Assessment and Plan: Patient has metabolic acidosis with a mildly elevated anion gap. Her lactic acid level is negative as well as BHOb. The patient probably has an acidosis because of her renal insufficiency. Anion gap is down. (3) HTN (hypertension): Qualifiers: Hypertension type: unspecified Qualified Code(s): I10 - Essential (primary) hypertension Code(s): I10 - Essential (primary) hypertension Status: Chronic Assessment and Plan: BP not too bad. She is on no blood pressure medications. (4) Diabetes: Qualifiers: Diabetes mellitus type: type 2 Diabetes mellitus equipment operator intermodal yard insulin use: without long-term use Diabetes mellitus complication status: without complication Qualified Code(s): E11.9 - Type 2 diabetes mellitus without complications Code(s): E11.9 - Type 2 diabetes mellitus without complications Status: Chronic Assessment and Plan: On Accu-Cheks and sliding-scale insulin (5) Complicated UTI (urinary tract infection): Code(s): N39.0 - Urinary tract infection, site not specified Status: Acute Assessment and Plan: Urine culture is negative She is on antibiotics. Subjective Date/time seen: 10/27/19 15:23 Interval history: The patient Is feeling better. She is awake. Is in the room. We discussed the case. Review of Systems Cardiovascular: Cardiovascular: Reports no additional cardiovascular complaints Respiratory: Respiratory: Reports no additional respiratory complaints Gastrointestinal: Gastrointestinal: Reports no additional gastrointestinal complaints Genitourinary: Genitourinary: Reports no additional female genitourinary complaints Exam Narrative: Exam Narrative: Well developed well-nourished in no acute distress Lungs clear to auscultation Heart regular without rub Abdomen bowel sounds positive soft nontender Extremities no edema Skin no rash Or subcu nodules Objective Data Vital Signs Vital Signs: Vital Signs - 24 hr 10/26/19 16:00 10/27/19 00:00 10/27/19 06:00 Temperature 36.2 C L 36.3 C L 36.3 C L Pulse Rate 94 98 95 Respiratory Rate 20 16 16 Blood Pressure 107/58 L 144/64 H 146/65 H Pulse Oximetry 100 98 99 Intake/Output Intake/Output: Intake & Output 10/24/19 10/25/19 10/26/19 10/27/19 23:59 23:59 23:59 23:59 Intake Total 1729.3 2292.7 2600 2240 Output Total 0 610 4050 2800 Balance 1729.3 1682.7 -1450 -560 Meds/Results Medications: Active Medications Generic Name Dose Route Start Last Admin Trade Name Freq PRN Reason Stop Dose Admin Atorvastatin Calcium 10 mg 10/24/19 21:00 10/26/19 22:12 Lipitor PO 10 mg HS FLACO Administration Dextrose 12.5 gm 10/24/19 20:47 10/25/19 06:32 Dextrose 50% Syringe IV PUSH 12.5 gm PRN PRN Administration Hypoglycemia Protocol Donepezil HCl 10 mg 10/24/19 18:00 10/26/19 18:14 Aricept PO 10 mg QPM FLACO Administration Glucagon 1 mg 10/24/19 20:47 Glucagon For Inj IM PRN PRN Hypoglycemia Protocol Glucose 15 gm 10/24/19 20:47
--- NOTE | 2019-10-27 16:06 | PM.IMPN ---
Progress Note: A&P Assessment and Plan (1) Complicated UTI (urinary tract infection): Code(s): N39.0 - Urinary tract infection, site not specified Status: Acute Assessment and Plan: Continue Zosyn IV D # 4. . Urine culture growing multiple organisms but with sepsis will continue antibiotic for now , probable d/c 1-2 days. Nephrology feels pyuria probable from ATN and dehydration.. Sanchez catheter was placed.. (2) Sepsis: Qualifiers: Sepsis type: sepsis due to unspecified organism Sepsis acute organ dysfunction status: with acute organ dysfunction Severe sepsis acute organ dysfunction type: acute renal failure Acute renal failure type: unspecified Severe sepsis shock status: without septic shock Qualified Code(s): A41.9 - Sepsis, unspecified organism; R65.20 - Severe sepsis without septic shock; N17.9 - Acute kidney failure, unspecified Code(s): A41.9 - Sepsis, unspecified organism Status: Acute Assessment and Plan: Source of sepsis thought to be urinary.. blood,cultures so far negative. Continue IV antibiotic therapy D #4 . Continue IV hydration but decrease to 50 ml /ml with basal crackle. (3) Acute renal failure (ARF): Qualifiers: Acute renal failure type: unspecified Qualified Code(s): N17.9 - Acute kidney failure, unspecified Code(s): N17.9 - Acute kidney failure, unspecified Status: Acute Assessment and Plan: Likely secondary to dehydration and poor PO intake of fluids. Continue IV fluid challenge. CK normal.. Renal ultrasound no obstruction.. creatinine down to 2.8 today. (4) Dehydration: Code(s): E86.0 - Dehydration Status: Acute Assessment and Plan: Continue IV hydration (5) Failure to thrive: Qualifiers: Failure to thrive age range: in adult Qualified Code(s): R62.7 - Adult failure to thrive Status: Acute Assessment and Plan: Likely multifactorial. The patient will likely need placement in a SNF when she is medically stable. start OT PT (6) Decubitus ulcer, stage 1 with infection: Code(s): L89.91 - Pressure ulcer of unspecified site, stage 1; L08.9 - Local infection of the skin and subcutaneous tissue, unspecified Status: Acute Assessment and Plan: Wound care saw today and specialty mattress ordered (7) Dementia: Qualifiers: Dementia type: unspecified type Dementia behavioral disturbance: without behavioral disturbance Qualified Code(s): F03.90 - Unspecified dementia without behavioral disturbance Code(s): F03.90 - Unspecified dementia without behavioral disturbance Status: Chronic Assessment and Plan: Continue home donepezil (8) Metabolic acidosis with increased anion gap and reduced excretion of inorganic acids: Code(s): E87.2 - Acidosis Status: Acute Assessment and Plan: Appears to be secondary to acute renal failure. Monitor acid-base status. resolved (9) Hyperkalemia: Code(s): E87.5 - Hyperkalemia Status: Acute Assessment and Plan: Secondary to acute renal failure. K 3.3 resolved and will have to supplement now and replace phos too (10) Diabetes: Qualifiers: Diabetes mellitus type: type 2 Diabetes mellitus terminal manager insulin use: without terminal manager use Diabetes mellitus complication status: without complication Qualified Code(s): E11.9 - Type 2 diabetes mellitus without complications Code(s): E11.9 - Type 2 diabetes mellitus without complications Status: Chronic Assessment and Plan: accuchecks, SSI coverage, hypoglycemic protocol. was initially hypoglycemic with ARF and sepsis requiring D10 to maintain BS. (11) HTN (hypertension): Qualifiers: Hypertension type: unspecified Qualified Code(s): I10 - Essential (primary) hypertension Code(s): I10 - Essential (primary) hypertension Status: Chronic Assessment and Plan: stab
[2019-10-27 16:15] LABS: Partial Thromboplastin Time 80.5 SECONDS (22.3-36.8)
[2019-10-27] MEDS: DONEPEZIL HCL 10 MG TABLET PO (17:23)
[2019-10-27] MEDS: POTASSIUM CHLORIDE 20 MEQ TABLET 40 MEQ PO (17:24)
[2019-10-27 18:48] LABS: Glucose Point of Care 310 (65-105)
[2019-10-27] MEDS: ATORVASTATIN 10 MG TABLET PO (21:10)
[2019-10-27 22:13] LABS: Partial Thromboplastin Time 75.9 SECONDS (22.3-36.8)
[2019-10-27 22:28] LABS: Glucose Point of Care 230 (65-105)
[2019-10-27] MEDS: HEPARIN SOD/D5W 100 UNITS/ML 25,000 UNITS/250 ML BAG 8 UNITS IV CONT (22:35)
[2019-10-28] VITALS: BP 145/72; PULSE 93; RESP 16; TEMP 36.4; O2SAT 98
[2019-10-28] MEDS: SODIUM CHLORIDE 0.9% IV 1,000 ML 50 ML IV CONT ×2 (01:48→22:35)
[2019-10-28 06:00] VITALS: BP 136/55; PULSE 85; RESP 16; TEMP 36.2; O2SAT 99
[2019-10-28 06:16] LABS: Basophils Percent Auto 0.3 % (0.2-1.2); Eosinophils Absolute Auto 0.2 K/mm3 (0-0.3); Eosinophils Percent Auto 1.3 % (0-4.4); Hematocrit 30.8 % (37.0-47.0); Hemoglobin 9.8 g/dL (12.0-15.0); Immature Granulocyte Absolute 0.14 K/mm3 (0.00-0.031); Immature Granulocyte Percent A 1.1 % (0-0.5); Lymphocytes Absolute Auto 1.96 K/mm3 (0.9-3.2); Lymphocytes Percent Auto 15.4 % (18.3-44.2); Mean Corpuscular HGB Conc 31.8 g/dl (32-36); Mean Corpuscular Hemoglobin 26.1 pg (26-34); Mean Corpuscular Volume 82.1 fl (80-100); Mean Platelet Volume 10.6 fl (7.4-10.4); Monocytes Absolute Auto 0.9 K/mm3 (0.1-0.6); Monocytes Percent Auto 7.4 % (2.6-8.5); Neutrophils Absolute Auto 9.5 K/mm3 (1.3-6.7); Neutrophils Percent Auto 74.5 % (45.5-73.1); Platelet Count Result 232 k/mm3 (150-375); Red Blood Count 3.75 M/mm3 (4.2-5.4); Red Cell Distribution Width 14.5 % (11.5-14.5); White Blood Count 12.7 K/mm3 (4.5-10.0)
[2019-10-28 06:26] LABS: Partial Thromboplastin Time 90.4 SECONDS (22.3-36.8)
[2019-10-28 06:29] LABS: Albumin Level 2.7 g/dL (3.5-5.1); Blood Urea Nitrogen 28 mg/dL (7-17); Carbon Dioxide 22 mmol/L (22-30); Chloride 105 mmol/L (98-107); Estimated CRCL calculation 19 ml/min; Estimated Glomerular Filt Rate 31; Glucose 174 mg/dL (65-105); Potassium 3.3 mmol/L (3.4-5.0); Sodium 135 mmol/L (137-145)
[2019-10-28 08:20] VITALS: O2SAT 99
[2019-10-28] MEDS: POTASSIUM CHLORIDE 20 MEQ PACKET (FOR LIQUID) PO (08:23)
[2019-10-28 08:36] LABS: Glucose Point of Care 163 (65-105)
--- NOTE | 2019-10-28 09:39 | PM.PNNEP ---
Progress Note: A&P Assessment and Plan (1) Acute renal failure (ARF): Qualifiers: Acute renal failure type: unspecified Qualified Code(s): N17.9 - Acute kidney failure, unspecified Code(s): N17.9 - Acute kidney failure, unspecified Status: Acute Assessment and Plan: The patient has acute kidney injury. No hydro. She has 1 cyst and possible bilateral kidney stones. Urine electrolytes are non pre renal. UA does show blood and pus in the urine. Culture shows multiple organisms. probably due to dehydration plus an element of ATN because of the prolonged period of dehydration. Her creatinine is much better today again down to 1.8. Will continue IV fluids for one more day. (2) Metabolic acidosis with increased anion gap and reduced excretion of inorganic acids: Code(s): E87.2 - Acidosis Status: Acute Assessment and Plan: improved. (3) HTN (hypertension): Qualifiers: Hypertension type: unspecified Qualified Code(s): I10 - Essential (primary) hypertension Code(s): I10 - Essential (primary) hypertension Status: Chronic Assessment and Plan: BP not too bad. She is on no blood pressure medications. (4) Diabetes: Qualifiers: Diabetes mellitus type: type 2 Diabetes mellitus chcf insulin use: without termite treater helper use Diabetes mellitus complication status: without complication Qualified Code(s): E11.9 - Type 2 diabetes mellitus without complications Code(s): E11.9 - Type 2 diabetes mellitus without complications Status: Chronic Assessment and Plan: On Accu-Cheks and sliding-scale insulin (5) Complicated UTI (urinary tract infection): Code(s): N39.0 - Urinary tract infection, site not specified Status: Acute Assessment and Plan: Urine culture is negative She is on antibiotics. Subjective Date/time seen: 10/28/19 09:39 Interval history: The patient Is feeling better. sitting up in a chair. She is awake. Review of Systems Cardiovascular: Cardiovascular: Reports no additional cardiovascular complaints Respiratory: Respiratory: Reports no additional respiratory complaints Gastrointestinal: Gastrointestinal: Reports no additional gastrointestinal complaints Genitourinary: Genitourinary: Reports no additional female genitourinary complaints Exam Narrative: Exam Narrative: Well developed well-nourished in no acute distress Lungs clear to auscultation Heart regular without rub Abdomen bowel sounds positive soft nontender Extremities trace edema some discomfort in her legs with palpation Skin no rash Or subcu nodules Objective Data Vital Signs Vital Signs: Vital Signs - 24 hr 10/28/19 00:00 10/28/19 06:00 Temperature 36.4 C 36.2 C L Pulse Rate 93 85 Respiratory Rate 16 16 Blood Pressure 145/72 H 136/55 L Pulse Oximetry 98 99 Intake/Output Intake/Output: Intake & Output 10/25/19 10/26/19 10/27/19 10/28/19 23:59 23:59 23:59 23:59 Intake Total 2292.7 2600 2845 1378 Output Total 610 4050 4500 1000 Balance 6338.7 -3889 -9888 378 Meds/Results Medications: Active Medications Generic Name Dose Route Start Last Admin Trade Name Freq PRN Reason Stop Dose Admin Atorvastatin Calcium 10 mg 10/24/19 21:00 10/27/19 21:10 Lipitor PO 10 mg HS FLACO Administration Dextrose 12.5 gm 10/24/19 20:47 10/25/19 06:32 Dextrose 50% Syringe IV PUSH 12.5 gm PRN PRN Administration Hypoglycemia Protocol Donepezil HCl 10 mg 10/24/19 18:00 10/27/19 17:23 Aricept PO 10 mg QPM FLACO Administration Glucagon 1 mg 10/24/19 20:47 Glucagon For Inj IM PRN PRN Hypoglycemia Protocol Glucose 15 gm 10/24/19 20:47 10/25/19 22:04 Glutose 15 PO 15 gm PRN PRN Administration Hypoglycemia Protocol Heparin Sodium (Porcine) 4,500 units 10/24/19 13:07 Heparin Sodium IV PUSH PRN PRN a
[2019-10-28] MEDS: INSULIN ASPART (*BKC) 100 UNITS/ML SUB-Q ×2 (12:38→18:45)
[2019-10-28 13:00] LABS: Glucose Point of Care 240 (65-105)
--- NOTE | 2019-10-28 13:43 | PM.IMPN ---
Progress Note: A&P Assessment and Plan (1) Complicated UTI (urinary tract infection): Code(s): N39.0 - Urinary tract infection, site not specified Status: Acute Assessment and Plan: Continue Zosyn IV D # 5. . Urine culture growing multiple organisms but with sepsis will continue antibiotic for now , probable d/c after 5 days total. Nephrology feels pyuria probable from ATN and dehydration.. Sanchez catheter was placed.. (2) Sepsis: Qualifiers: Sepsis type: sepsis due to unspecified organism Sepsis acute organ dysfunction status: with acute organ dysfunction Severe sepsis acute organ dysfunction type: acute renal failure Acute renal failure type: unspecified Severe sepsis shock status: without septic shock Qualified Code(s): A41.9 - Sepsis, unspecified organism; R65.20 - Severe sepsis without septic shock; N17.9 - Acute kidney failure, unspecified Code(s): A41.9 - Sepsis, unspecified organism Status: Acute Assessment and Plan: Source of sepsis thought to be urinary, blood,cultures so far negative. Continue IV antibiotic therapy D #5 . Continue IV hydration (3) Acute renal failure (ARF): Qualifiers: Acute renal failure type: unspecified Qualified Code(s): N17.9 - Acute kidney failure, unspecified Code(s): N17.9 - Acute kidney failure, unspecified Status: Acute Assessment and Plan: Likely secondary to dehydration and poor PO intake of fluids. Continue IV fluid challenge. CK normal.. Renal ultrasound no obstruction.. creatinine down to 1.6 today. (4) Dehydration: Code(s): E86.0 - Dehydration Status: Acute Assessment and Plan: Continue IV hydration (5) Failure to thrive: Qualifiers: Failure to thrive age range: in adult Qualified Code(s): R62.7 - Adult failure to thrive Status: Acute Assessment and Plan: Likely multifactorial. The patient will likely need placement in a SNF when she is medically stable. Continue PT/OT. (6) Decubitus ulcer, stage 1 with infection: Code(s): L89.91 - Pressure ulcer of unspecified site, stage 1; L08.9 - Local infection of the skin and subcutaneous tissue, unspecified Status: Acute Assessment and Plan: Wound care saw today and specialty mattress ordered (7) Dementia: Qualifiers: Dementia type: unspecified type Dementia behavioral disturbance: without behavioral disturbance Qualified Code(s): F03.90 - Unspecified dementia without behavioral disturbance Code(s): F03.90 - Unspecified dementia without behavioral disturbance Status: Chronic Assessment and Plan: Continue home donepezil (8) Metabolic acidosis with increased anion gap and reduced excretion of inorganic acids: Code(s): E87.2 - Acidosis Status: Acute Assessment and Plan: Appears to be secondary to acute renal failure. Monitor acid-base status. resolved (9) Hyperkalemia: Code(s): E87.5 - Hyperkalemia Status: Acute Assessment and Plan: Secondary to acute renal failure. 2/4 K 3.3, PO KCL ordered (10) Diabetes: Qualifiers: Diabetes mellitus type: type 2 Diabetes mellitus longterm insulin use: without longterm use Diabetes mellitus complication status: without complication Qualified Code(s): E11.9 - Type 2 diabetes mellitus without complications Code(s): E11.9 - Type 2 diabetes mellitus without complications Status: Chronic Assessment and Plan: accuchecks, SSI coverage, hypoglycemic protocol. was initially hypoglycemic with ARF and sepsis requiring D10 to maintain BS. (11) HTN (hypertension): Qualifiers: Hypertension type: unspecified Qualified Code(s): I10 - Essential (primary) hypertension Code(s): I10 - Essential (primary) hypertension Status: Chronic Assessment and Plan: stable. monitor blood pressure. MEGAN-inhibitor on hold (12) DVT (deep venous
[2019-10-28 15:07] VITALS: BP 151/73; PULSE 94; RESP 16; TEMP 36.5; O2SAT 100
[2019-10-28 18:20] LABS: Glucose Point of Care 206 (65-105)
[2019-10-28] MEDS: DONEPEZIL HCL 10 MG TABLET PO (18:45)
[2019-10-28 20:48] VITALS: BP 104/45; PULSE 90; RESP 16; TEMP 36.3; O2SAT 99
[2019-10-28] MEDS: ATORVASTATIN 10 MG TABLET PO (20:48)
[2019-10-28 21:36] LABS: Glucose Point of Care 204 (65-105)
[2019-10-28] MEDS: HEPARIN SOD/D5W 100 UNITS/ML 25,000 UNITS/250 ML BAG 8 UNITS IV CONT (22:35)
[2019-10-29 06:20] LABS: Basophils Percent Auto 0.2 % (0.2-1.2); Eosinophils Absolute Auto 0.1 K/mm3 (0-0.3); Eosinophils Percent Auto 1.3 % (0-4.4); Hematocrit 26.3 % (37.0-47.0); Hemoglobin 8.2 g/dL (12.0-15.0); Immature Granulocyte Absolute 0.19 K/mm3 (0.00-0.031); Immature Granulocyte Percent A 1.9 % (0-0.5); Lymphocytes Absolute Auto 1.36 K/mm3 (0.9-3.2); Lymphocytes Percent Auto 13.8 % (18.3-44.2); Mean Corpuscular HGB Conc 31.2 g/dl (32-36); Mean Corpuscular Hemoglobin 26.5 pg (26-34); Mean Corpuscular Volume 84.8 fl (80-100); Mean Platelet Volume 10.2 fl (7.4-10.4); Monocytes Absolute Auto 0.6 K/mm3 (0.1-0.6); Monocytes Percent Auto 6.4 % (2.6-8.5); Neutrophils Absolute Auto 7.5 K/mm3 (1.3-6.7); Neutrophils Percent Auto 76.4 % (45.5-73.1); Platelet Count Result 212 k/mm3 (150-375); Red Cell Distribution Width 14.6 % (11.5-14.5); White Blood Count 9.8 K/mm3 (4.5-10.0)
[2019-10-29 06:22] LABS: Partial Thromboplastin Time 91.4 SECONDS (22.3-36.8)
[2019-10-29 06:27] LABS: Albumin Level 2.2 g/dL (3.5-5.1); Blood Urea Nitrogen 16 mg/dL (7-17); Calcium 6.6 mg/dL (8.4-10.2); Carbon Dioxide 17 mmol/L (22-30); Chloride 108 mmol/L (98-107); Estimated CRCL calculation 30 ml/min; Estimated Glomerular Filt Rate 53; Glucose 269 mg/dL (65-105); Phosphorus 2.8 mg/dL (2.5-4.5); Potassium 2.6 mmol/L (3.4-5.0); Sodium 135 mmol/L (137-145)
[2019-10-29 06:49] VITALS: BP 139/65; PULSE 86; RESP 15; TEMP 36.1; O2SAT 100
[2019-10-29 08:00] VITALS: PULSE 86; RESP 15; O2SAT 100
[2019-10-29] MEDS: POTASSIUM CHLORIDE 20 MEQ TABLET 40 MEQ PO (09:46)
[2019-10-29] MEDS: INSULIN ASPART (*BKC) 100 UNITS/ML SUB-Q ×2 (09:52→13:20)
[2019-10-29 10:35] LABS: Glucose Point of Care 236 (65-105)
[2019-10-29 12:58] LABS: Glucose Point of Care 232 (65-105)
[2019-10-29] MEDS: POTASSIUM CHLORIDE 20 MEQ PACKET (FOR LIQUID) 40 MEQ PO (13:19)
--- NOTE | 2019-10-29 13:23 | PM.IMPN ---
Progress Note: A&P Assessment and Plan (1) Complicated UTI (urinary tract infection): Code(s): N39.0 - Urinary tract infection, site not specified Status: Acute Assessment and Plan: Continue Zosyn IV D # 6. . Urine culture growing multiple organisms but with sepsis. D/c Zosyn today. Nephrology feels pyuria probable from ATN and dehydration.. Sanchez catheter was placed for protection of wound on buttocks. (2) Sepsis: Qualifiers: Sepsis type: sepsis due to unspecified organism Sepsis acute organ dysfunction status: with acute organ dysfunction Severe sepsis acute organ dysfunction type: acute renal failure Acute renal failure type: unspecified Severe sepsis shock status: without septic shock Qualified Code(s): A41.9 - Sepsis, unspecified organism; R65.20 - Severe sepsis without septic shock; N17.9 - Acute kidney failure, unspecified Code(s): A41.9 - Sepsis, unspecified organism Status: Acute Assessment and Plan: Source of sepsis thought to be urinary, blood,cultures so far negative. Continue IV antibiotic therapy D #6 . Continue IV hydration (3) Acute renal failure (ARF): Qualifiers: Acute renal failure type: unspecified Qualified Code(s): N17.9 - Acute kidney failure, unspecified Code(s): N17.9 - Acute kidney failure, unspecified Status: Acute Assessment and Plan: Likely secondary to dehydration and poor PO intake of fluids. Continue IV fluid challenge. CK normal.. Renal ultrasound no obstruction.. creatinine down to 1.6 today. (4) Dehydration: Code(s): E86.0 - Dehydration Status: Acute Assessment and Plan: Continue IV hydration (5) Failure to thrive: Qualifiers: Failure to thrive age range: in adult Qualified Code(s): R62.7 - Adult failure to thrive Status: Acute Assessment and Plan: Likely multifactorial. The patient will likely need placement in a SNF when she is medically stable. Continue PT/OT. (6) Decubitus ulcer, stage 1 with infection: Code(s): L89.91 - Pressure ulcer of unspecified site, stage 1; L08.9 - Local infection of the skin and subcutaneous tissue, unspecified Status: Acute Assessment and Plan: Continue with specialty mattress (7) Dementia: Qualifiers: Dementia type: unspecified type Dementia behavioral disturbance: without behavioral disturbance Qualified Code(s): F03.90 - Unspecified dementia without behavioral disturbance Code(s): F03.90 - Unspecified dementia without behavioral disturbance Status: Chronic Assessment and Plan: Continue home donepezil (8) Metabolic acidosis with increased anion gap and reduced excretion of inorganic acids: Code(s): E87.2 - Acidosis Status: Acute Assessment and Plan: resolved (9) Hyperkalemia: Code(s): E87.5 - Hyperkalemia Status: Acute Assessment and Plan: Secondary to acute renal failure. 10/28 K 3.3, PO KCL ordered 2 2.6, po and iv kcl ordered (10) Diabetes: Qualifiers: Diabetes mellitus type: type 2 Diabetes mellitus custodial insulin use: without custodial use Diabetes mellitus complication status: without complication Qualified Code(s): E11.9 - Type 2 diabetes mellitus without complications Code(s): E11.9 - Type 2 diabetes mellitus without complications Status: Chronic Assessment and Plan: accuchecks, SSI coverage, hypoglycemic protocol. was initially hypoglycemic with ARF and sepsis requiring D10 to maintain BS. (11) HTN (hypertension): Qualifiers: Hypertension type: unspecified Qualified Code(s): I10 - Essential (primary) hypertension Code(s): I10 - Essential (primary) hypertension Status: Chronic Assessment and Plan: stable. monitor blood pressure. MEGAN-inhibitor on hold (12) DVT (deep venous thrombosis): Code(s): I82.409 - Acute embolism and thrombosis of un
[2019-10-29 14:00] VITALS: BP 130/74; PULSE 78; RESP 16; TEMP 36.7; O2SAT 97
[2019-10-29 14:06] LABS: Blood Urea Nitrogen 16 mg/dL (7-17); Calcium 7.9 mg/dL (8.4-10.2); Carbon Dioxide 21 mmol/L (22-30); Chloride 108 mmol/L (98-107); Estimated CRCL calculation 28 ml/min; Estimated Glomerular Filt Rate 48; Glucose 245 mg/dL (65-105); Potassium 3.8 mmol/L (3.4-5.0); Sodium 137 mmol/L (137-145)
--- NOTE | 2019-10-29 16:03 | PC.NURSE ---
Pt not given 1600 PO potassium. Pt sleeping currently and still trying to get patient to complete PO potassium from this early afternoon.
[2019-10-29] MEDS: CHOLESTYRAMINE (W/ SUGAR) 4 GM POWD.PACK PO (18:22)
[2019-10-29] MEDS: DONEPEZIL HCL 10 MG TABLET PO (18:23)
[2019-10-29] MEDS: SACCHAROMYCES BOULARDII 250 MG CAPSULE PO (18:23)
[2019-10-29 18:33] LABS: Glucose Point of Care 196 (65-105)
[2019-10-29 20:00] VITALS: PULSE 77; RESP 16; O2SAT 99
[2019-10-29] MEDS: ATORVASTATIN 10 MG TABLET PO (21:03)
[2019-10-29] MEDS: APIXABAN 2.5 MG TABLET PO (21:03)
[2019-10-29 22:21] VITALS: BP 158/67; PULSE 77; RESP 16; TEMP 36.1; O2SAT 99
[2019-10-29 22:28] LABS: Albumin 2.2 g/dL (3.8-4.8); Alpha 1 Globulin 0.5 g/dL (0.2-0.3); Alpha 2 Globulin 0.9 g/dL (0.5-0.9); Beta 1 Globulin 0.4 g/dL (0.4-0.6); Gamma Globulin 0.7 g/dL (0.8-1.7); Protein, Total 4.9 g/dL (6.1-8.1)
[2019-10-29 22:53] LABS: Glucose Point of Care 210 (65-105)
[2019-10-30 06:34] VITALS: BP 159/78; PULSE 86; RESP 14; TEMP 36.1; O2SAT 97
[2019-10-30] MEDS: APIXABAN 2.5 MG TABLET PO ×2 (08:10→22:22)
[2019-10-30] MEDS: SACCHAROMYCES BOULARDII 250 MG CAPSULE PO ×2 (08:10→17:14)
[2019-10-30 10:15] LABS: Glucose Point of Care 148 (65-105)
[2019-10-30] MEDS: CHOLESTYRAMINE (W/ SUGAR) 4 GM POWD.PACK PO ×2 (10:48→17:16)
[2019-10-30 11:41] LABS: Partial Thromboplastin Time 44.1 SECONDS (22.3-36.8)
[2019-10-30 11:43] LABS: Blood Urea Nitrogen 11 mg/dL (7-17); Calcium 7.6 mg/dL (8.4-10.2); Carbon Dioxide 23 mmol/L (22-30); Chloride 104 mmol/L (98-107); Estimated CRCL calculation 30 ml/min; Estimated Glomerular Filt Rate 53; Glucose 210 mg/dL (65-105); Magnesium 0.7 mg/dL (1.6-2.3); Potassium 3.5 mmol/L (3.4-5.0); Sodium 138 mmol/L (137-145)
[2019-10-30 12:35] LABS: Glucose Point of Care 182 (65-105)
--- NOTE | 2019-10-30 13:58 | PM.IMPN ---
Progress Note: A&P Assessment and Plan (1) Complicated UTI (urinary tract infection): Code(s): N39.0 - Urinary tract infection, site not specified Status: Acute Assessment and Plan: Completed 5 day course of Zosyn 10/29. Discussed end-of-life goals with spouse at bedside. He wishes to pursue [facility] rehab. Goal is discharge to [facility] 10/31. (2) Sepsis: Qualifiers: Sepsis type: sepsis due to unspecified organism Sepsis acute organ dysfunction status: with acute organ dysfunction Severe sepsis acute organ dysfunction type: acute renal failure Acute renal failure type: unspecified Severe sepsis shock status: without septic shock Qualified Code(s): A41.9 - Sepsis, unspecified organism; R65.20 - Severe sepsis without septic shock; N17.9 - Acute kidney failure, unspecified Code(s): A41.9 - Sepsis, unspecified organism Status: Acute Assessment and Plan: Source of sepsis thought to be urinary, blood,cultures so far negative. Resolved. (3) Acute renal failure (ARF): Qualifiers: Acute renal failure type: unspecified Qualified Code(s): N17.9 - Acute kidney failure, unspecified Code(s): N17.9 - Acute kidney failure, unspecified Status: Acute Assessment and Plan: Likely secondary to dehydration and poor PO intake of fluids. Continue IV fluid challenge. CK normal.. Renal ultrasound no obstruction. Creatinine down to 1.0 today. (4) Dehydration: Code(s): E86.0 - Dehydration Status: Acute Assessment and Plan: Continue PO hydration (5) Failure to thrive: Qualifiers: Failure to thrive age range: in adult Qualified Code(s): R62.7 - Adult failure to thrive Status: Acute Assessment and Plan: Likely multifactorial. The patient will likely need placement in a SNF when she is medically stable. Continue PT/OT. (6) Decubitus ulcer, stage 1 with infection: Code(s): L89.91 - Pressure ulcer of unspecified site, stage 1; L08.9 - Local infection of the skin and subcutaneous tissue, unspecified Status: Acute Assessment and Plan: Continue with specialty mattress (7) Dementia: Qualifiers: Dementia type: unspecified type Dementia behavioral disturbance: without behavioral disturbance Qualified Code(s): F03.90 - Unspecified dementia without behavioral disturbance Code(s): F03.90 - Unspecified dementia without behavioral disturbance Status: Chronic Assessment and Plan: Continue home donepezil (8) Metabolic acidosis with increased anion gap and reduced excretion of inorganic acids: Code(s): E87.2 - Acidosis Status: Acute Assessment and Plan: resolved (9) Hyperkalemia: Code(s): E87.5 - Hyperkalemia Status: Acute Assessment and Plan: Secondary to acute renal failure. / K 3.3, PO KCL ordered 10/29 2.6, po and iv kcl ordered 10/30 3.5 with PO kcl ordered (10) Diabetes: Qualifiers: Diabetes mellitus type: type 2 Diabetes mellitus [facility] insulin use: without [facility] use Diabetes mellitus complication status: without complication Qualified Code(s): E11.9 - Type 2 diabetes mellitus without complications Code(s): E11.9 - Type 2 diabetes mellitus without complications Status: Chronic Assessment and Plan: accuchecks, SSI coverage, hypoglycemic protocol. was initially hypoglycemic with ARF and sepsis requiring D10 to maintain BS. (11) HTN (hypertension): Qualifiers: Hypertension type: unspecified Qualified Code(s): I10 - Essential (primary) hypertension Code(s): I10 - Essential (primary) hypertension Status: Chronic Assessment and Plan: stable. monitor blood pressure. MEGAN-inhibitor on hold (12) DVT (deep venous thrombosis): Code(s): I82.409 - Acute embolism and thrombosis of unspecified deep veins of unspecified lower extremity Status:
[2019-10-30 14:00] VITALS: BP 151/87; PULSE 85; RESP 20; TEMP 36.5; O2SAT 100
--- NOTE | 2019-10-30 14:35 | PCDIET ---
Nutrition Follow-Up Complete: Inadequate Oral Intake as related to weakness as evidenced by poor po intake and weight loss of 2-13 ibs in the past 3 months. Adequate Intake of at least 75% of meals/supplements Goal not met. Pt's average meal consumption since 10/27 is 45%. Nutrition recommendation: Continuation of current diet order and Compact. Last recorded weight is 58.3 kg. Bowel Motility:200ml collected stool on 10/29 Labs Reviewed:Na(138), K(3.5), GFR(53), BUN(11), Glu(210), Ca(7.6) Meds Noted:Eliquis, Lipitor, Novolog, Florastor Additional Notes: Family notes that pt's appetite is getting better. Ate most of her lunch today (potatoes, chicken, gravy, jello and fruit). She liked the Jello and Compact. No noticed N/V. Nurse stated that the pt seems to eat more as the day goes on. New weight recorded (58.3kg) but nurse said there was some difficulty weighing the pt today so it may not be accurate. Will supaior every 5 days.
--- NOTE | 2019-10-30 16:07 | PCNSR ---
On 10/30/19, the student, Rochelle Cid, provided care and completed [facility] documentation on this patient. I have reviewed the student's documentation and agree with the findings.
[2019-10-30] MEDS: POTASSIUM CHLORIDE 20 MEQ TABLET 40 MEQ PO (17:13)
[2019-10-30] MEDS: DONEPEZIL HCL 10 MG TABLET PO (17:18)
[2019-10-30 17:46] LABS: Glucose Point of Care 196 (65-105)
[2019-10-30 21:42] VITALS: BP 145/88; PULSE 88; RESP 16; TEMP 36.1; O2SAT 97
[2019-10-30] MEDS: ATORVASTATIN 10 MG TABLET PO (22:22)
[2019-10-30 22:45] LABS: Glucose Point of Care 230 (65-105)
[2019-10-31 00:50] LABS: Creatinine, Random Urine 66 mg/dL (20-275); Total Protein/Creatinine Ratio 2924 mg/g creat (21-161)
[2019-10-31 05:32] VITALS: BP 150/72; PULSE 83; RESP 17; TEMP 36.2; O2SAT 98
[2019-10-31 08:11] LABS: Glucose Point of Care 156 (65-105)
[2019-10-31] MEDS: APIXABAN 2.5 MG TABLET PO (08:11)
[2019-10-31] MEDS: SACCHAROMYCES BOULARDII 250 MG CAPSULE PO (08:11)
[2019-10-31] MEDS: CHOLESTYRAMINE (W/ SUGAR) 4 GM POWD.PACK PO (09:21)
--- NOTE | 2019-10-31 10:53 | PM.DS ---
DS: Diagnosis Admitting Diagnosis Admitting Diagnosis: Urinary tract infection, site not specified Discharge Diagnosis (1) Complicated UTI (urinary tract infection): Code(s): N39.0 - Urinary tract infection, site not specified Status: Acute Assessment and Plan: Completed 5 day course of Zosyn 10/29. 10/30 Discussed end-of-life goals with spouse at bedside. He wishes to pursue [facility] rehab. Continue flores due to presacral pressure sore, but remove fecal containment device. Goal is discharge to [facility] 10/31. (2) Sepsis: Qualifiers: Acute renal failure type: unspecified Sepsis acute organ dysfunction status: with acute organ dysfunction Sepsis type: sepsis due to unspecified organism Severe sepsis acute organ dysfunction type: acute renal failure Severe sepsis shock status: without septic shock Qualified Code(s): A41.9 - Sepsis, unspecified organism; R65.20 - Severe sepsis without septic shock; N17.9 - Acute kidney failure, unspecified Code(s): A41.9 - Sepsis, unspecified organism Status: Acute Assessment and Plan: Source of sepsis thought to be urinary, blood,cultures so far negative. Resolved. (3) Acute renal failure (ARF): Qualifiers: Acute renal failure type: unspecified Qualified Code(s): N17.9 - Acute kidney failure, unspecified Code(s): N17.9 - Acute kidney failure, unspecified Status: Acute Assessment and Plan: Likely secondary to dehydration and poor PO intake of fluids. Continue IV fluid challenge. CK normal.. Renal ultrasound no obstruction. Creatinine down to 1.0 10/30 (4) Dehydration: Code(s): E86.0 - Dehydration Status: Acute Assessment and Plan: Continue PO hydration (5) Failure to thrive: Qualifiers: Failure to thrive age range: in adult Qualified Code(s): R62.7 - Adult failure to thrive Status: Acute Assessment and Plan: Likely multifactorial. The patient will likely need placement in a SNF when she is medically stable. Continue PT/OT. (6) Decubitus ulcer, stage 1 with infection: Code(s): L89.91 - Pressure ulcer of unspecified site, stage 1; L08.9 - Local infection of the skin and subcutaneous tissue, unspecified Status: Acute Assessment and Plan: Continue with specialty mattress (7) Dementia: Qualifiers: Dementia behavioral disturbance: without behavioral disturbance Dementia type: unspecified type Qualified Code(s): F03.90 - Unspecified dementia without behavioral disturbance Code(s): F03.90 - Unspecified dementia without behavioral disturbance Status: Chronic Assessment and Plan: Continue home donepezil (8) Metabolic acidosis with increased anion gap and reduced excretion of inorganic acids: Code(s): E87.2 - Acidosis Status: Acute Assessment and Plan: resolved (9) Hyperkalemia: Code(s): E87.5 - Hyperkalemia Status: Acute Assessment and Plan: Secondary to acute renal failure. 10/28 K 3.3, PO KCL ordered 10/29 2.6, po and iv kcl ordered 10/30 3.5 with PO kcl ordered (10) Diabetes: Qualifiers: Diabetes mellitus complication status: without complication Diabetes mellitus [employer] insulin use: without [facility] use Diabetes mellitus type: type 2 Qualified Code(s): E11.9 - Type 2 diabetes mellitus without complications Code(s): E11.9 - Type 2 diabetes mellitus without complications Status: Chronic Assessment and Plan: Resume metformin. Monitor sugar. (11) HTN (hypertension): Qualifiers: Hypertension type: unspecified Qualified Code(s): I10 - Essential (primary) hypertension Code(s): I10 - Essential (primary) hypertension Status: Chronic Assessment and Plan: stable. monitor blood pressure. MEGAN-inhibitor on hold (12) DVT (deep venous thrombosis): Code(s): I82.409 - Acute embolism and thro
[2019-10-31 12:50] LABS: Glucose Point of Care 214 (65-105)
[2019-10-31] MEDS: INSULIN ASPART (*BKC) 100 UNITS/ML SUB-Q (12:50)
[2019-10-31 14:54] VITALS: BP 145/65; PULSE 92; RESP 18; TEMP 36.4; O2SAT 100
== END 2019-10-31 16:43 | DRG 698 ==
LOC: ANHED 13:27 → ANHIMU 14:36 → ANH3MED 10-27 22:06 → ANHIMU 11-03 15:08 → ANH3MED 11-03 15:08 → ANHIMU 11-03 15:08
PROVIDERS: Family Medicine; Internal Medicine; Internal Medicine Nephrology; Admitting Provider Family Medicine; Emergency Provider General Practice; PCP Family Medicine; Visit Provider Internal Medicine
DX: T83.511A Infection and inflammatory reaction due to indwelling urethral catheter, initial encounter (principal); A41.9 Sepsis, unspecified organism; R65.20 Severe sepsis without septic shock; N17.9 Acute kidney failure, unspecified; E87.2 Acidosis; I82.432 Acute embolism and thrombosis of left popliteal vein; I82.412 Acute embolism and thrombosis of left femoral vein; N39.0 Urinary tract infection, site not specified; I82.462 Acute embolism and thrombosis of left calf muscular vein; D72.829 Elevated white blood cell count, unspecified; E86.0 Dehydration; E78.5 Hyperlipidemia, unspecified; F03.90 Unspecified dementia, unspecified severity, without behavioral disturbance, psychotic disturbance, mood disturbance, and anxiety; E87.5 Hyperkalemia; E11.9 Type 2 diabetes mellitus without complications; I10 Essential (primary) hypertension; R62.7 Adult failure to thrive; L89.151 Pressure ulcer of sacral region, stage 1; L08.9 Local infection of the skin and subcutaneous tissue, unspecified; Z85.3 Personal history of malignant neoplasm of breast; Z90.49 Acquired absence of other specified parts of digestive tract
CPT/HCPCS: 36415; 36600; 70450; 71045; 76775; 80048; 80053; 80069; 81001; 81050; 82010; 82140; 82274; 82375; 82550; 82570; 82805; 83050; 83605; 83735; 83880; 84155; 84156; 84165; 84166; 84300; 85025; 85610; 85730; 87040; 87086; 87088; 93005; 93970; 96361; 96365; 97110; 97162; 97166; 97530; 97535; 99291; A9270; J1644; J1815; J2543; J3475; J3480; J7030; J7042; J7050; J7120